=== PATIENT | female | born 2000 | race Caucasian/White ===

== ENCOUNTER 2022-03-11 10:36 | Emergency (ER) | payer BC, SELFPAY ==
[2022-03-11 10:45] VITALS: BP 114/75; PULSE 94; RESP 16; TEMP 37.2; O2SAT 100
--- NOTE | 2022-03-11 10:45 | RT.EKG_ITS ---
APPROVED REPORT Exam: Resting ECG Reason for Exam: palpitations Patient Location: E HR:83 bpm ECG Measurements Heart Rate 83 AXIS MS 144 P 62 QRSd 78 QRS 52 QT 377 T 22 QTc 438 Conclusion Sinus rhythm...normal P axis, V-rate 60- 99 Atrial premature complex...SV complex w/ short R-R interval. Sinus. Normal axis. PACs. No STEMI. I have reviewed and interpreted ECG and agree with software generated interpretation.
[2022-03-11 11:12] VITALS: RESP 13
[2022-03-11 11:14] LABS: Abs Immature Grans 0.02 10^3/uL (0.0-0.06); Absolute Basophil Count 0.04 10^3/uL (0.0-0.2); Absolute Lymphocyte Count 2.91 10^3/uL (1.2-3.4); Absolute Monocyte Count 0.63 10^3/uL (0.1-0.8); Absolute Neutrophil Count 5.23 10^3/uL (1.2-6.7); Basophils % 0.4; Eosinophils % 4.3; HCT 41.3 % (36.0-46.0); HGB 13.5 g/dL (11.2-15.7); Immature Grans % 0.2; Lymphocytes % 31.5; MCH 28.8 pg (27.0-33.0); MCHC 32.7 % (32.0-36.0); MCV 88 fL (80-95); MPV 10.6 fL (8.0-11.0); Monocytes % 6.8; Neutrophils % 56.8; Platelet Count 258 10^3/uL (130-400); RBC 4.68 10^6/uL (3.93-5.22); RDW 12.5 % (11.7-14.6); RDW-SD 40.7 fL; WBC 9.23 10^3/uL (4.4-10.8)
[2022-03-11 11:41] LABS: ALT 21 U/L (14-59); AST 17 U/L (15-37); Albumin 3.9 g/dL (3.4-5.0); Alkaline Phosphatase 73 U/L (46-116); Anion Gap 7.8 mmol/L (3-11); BUN 11 mg/dL (7-18); Bilirubin, Total 0.7 mg/dL (0.2-1.0); CO2 26.2 mmol/L (21.0-32.0); CREATININE 0.6 mg/dL (0.55-1.02); Calcium 8.8 mg/dL (8.5-10.1); Chloride 105 mmol/L (98-107); Glucose 90 mg/dL (74-106); Magnesium 1.9 mg/dL (1.8-2.5); Potassium 3.8 mmol/L (3.5-5.1); Sodium 139 mmol/L (136-145); Total Protein 7.5 g/dL (6.4-8.2); Troponin I < 50 ng/L (<or=60)
[2022-03-11 12:02] VITALS: BP 111/58; BP 111/68; BP 114/68; PULSE 63; PULSE 79; PULSE 95
--- NOTE | 2022-03-11 12:18 | ED.GENADUL_ITS ---
Discharge Plan Disposition Patient Disposition: HOME Condition: Stable Discharge Details Clinical Impression: Heart palpitations, Light-headed feeling Primary Care Provider: Corrina Ramirez ED Provider: Danay Jules Home Meds and New Rx's Prescriptions: Continued escitalopram oxalate [Lexapro] 5 mg Tablet 5 mg PO DAILY 0RF Discharge Instructions Instructions: Heart Palpitations (ED) Additional Instructions: Please follow-up with your primary care physician Return earlier should you have chest pain, shortness of breath, dizziness, weakness, or with any new or worsening complaints I do not recommend that you drive if you are feeling like you might pass out Please return earlier should you have new or worsening complaints Referrals: Corirna Ramirez [Primary Care Provider] - Discharge Data Discharge Date/Time-TO BE ENTERED AT DEPARTURE: 03/11/22 12:00 Medical Decision Making , patient's blood work does not show evidence of acute abnormality Her EKG does not show acute abnormality She is ambulatory gait, her orthostatics are negative She was set up for Holter monitor She will need to follow-up with her primary care physician She is not PERC negative for PE Return precautions discussed and patient expressed understanding I reviewed her labs from yesterday's visit in the [facility] report Medical Records Medical records reviewed: Yes I reviewed the patient's medical records. Lab Data Lab results reviewed: Yes I reviewed the patient's lab results. HPI General Date/Time Provider Initiated Documentation: 03/11/22 10:38 . HPI Narrative: This 21-year-old female presents with 3 weeks of lightheadedness and palpitations. She states she was evaluated yesterday at an urgent care and had blood work all of which was negative. She presents here secondary to shakiness this morning recurrence of symptoms. She states when she is driving she felt like she might pass out. She states her symptoms occur both sitting and standing. She denies known exacerbating or alleviating events. She denies any chance of . She was treated for urinary tract infection approximately 3 weeks ago. She had a urine checked yesterday and was told was negative. She denies prior history of similar symptoms in the past. She denies Holter monitor previously. She denies any recent flights, surgeries or long track. She has any shortness of breath or chest pain associated. She denies any recent upper respiratory symptoms. She was diagnosed with COVID in December of this year. Related Data Home Medications Medication Instructions Recorded Confirmed escitalopram oxalate 5 mg tablet 5 mg PO DAILY 03/11/22 03/11/22 (Lexapro) Allergies Allergy/AdvReac Type Severity Reaction Status Date / Time latex Allergy Skin Rash Unverified 03/11/22 10:49 General Stated Complaint: [employer]Medical BABAK: 3 Review of Systems All systems reviewed & are unremarkable except as noted in HPI and below PFSH All Active Problems (Updated 03/11/22 @ 12:00 by YAW Rao) Heart palpitations (Acute) Light-headed feeling (Acute) Palpitations (Acute) Social History Smoking/Tobacco Use Status: Never Smoking risk assessment performed?: Yes Alcohol Intake: never Drug use: Never Substance use type: does not use Do you feel safe at home: Yes Do you feel safe in your relationship?: Yes Exam Const General: cooperative, comfortable and no acute distress Eyes Sclera: sclerae normal Resp Effort & Inspection: normal respiratory effort Auscultation: clear to auscultation bilaterally Cardio Rate: regular rate Rhythm: regular rhythm GI Inspection: normal to inspection Palpation: nontender Skin General skin exam: no rashes or lesions noted Neuro General: patient alert and patient oriented x3 Extrem Other: distal pulses intact Course Vital Signs Vital signs: Vital Signs Temperature 37.2 C 03/11/22 10:45 Pulse 94 H 03/11/22 10:45 Respiratory Rate 16 03/11/22 10:45 Blood Pressure 114/75 03/11/22 10:45 Pulse Oximetry 100 03/11/22 10:45 Temperature 37.2 C 03/11/22 10:45 Temperature Source Temporal Artery Scan 03/11/22 10:45 Pulse 63 03/11/22 12:02 Respiratory Rate 13 03/11/22 11:12 Respiratory Effort Non-Labored 03/11/22 11:12 Respiratory Depth Normal 03/11/22 11:12 Respiratory Pattern Normal 03/11/22 11:12 Blood Pressure 111/68 03/11/22 12:02 Blood Pressure Position Sitting 03/11/22 10:45 Pulse Oximetry 100 03/11/22 10:45 Oxygen Delivery Method Room Air 03/11/22 10:45 Oxygen Flow Rate 0 03/11/22 10:45 Lab/Test Results Lab/Test Results: Laboratory Tests Range/Units 03/11/22 03/11/2203/11/22 11:09 11:09 11:09 WBC (4.4-10.8) 10^3/uL 9.23 RBC (3.93-5.22) 10^6/uL 4.68 Hgb (11.2-15.7) g/dL 13.5 Hct (36.0-46.0) % 41.3 MCV (80-95) fL 88 MCH (27.0-33.0) pg 28.8 MCHC (32.0-36.0) % 32.7 RDW (11.7-14.6) % 12.5 Plt Count (130-400) 10^3/uL 258 MPV (8.0-11.0) fL 10.6 Immature Gran % 0.2 Neutrophils % 56.8 Lymphocytes % 31.5 Monocytes % 6.8 Eosinophils % 4.3 Basophils % 0.4 Nucleated RBC % (0.0-0.3) % 0.0 Absolute Neutrophils (1.2-6.7) 10^3/uL 5.23 Absolute Lymphocytes (1.2-3.4) 10^3/uL 2.91 Absolute Monocytes (0.1-0.8) 10^3/uL 0.63 Absolute Eosinophils (0.0-0.7) 10^3/uL 0.40 Absolute Basophils (0.0-0.2) 10^3/uL 0.04 Sodium (136-145) mmol/L 139 Potassium (3.5-5.1) mmol/L 3.8 Chloride (98-107) mmol/L 105 Carbon Dioxide (21.0-32.0) mmol/L 26.2 Anion Gap (3-11) mmol/L 7.8 BUN (7-18) mg/dL 11 Creatinine (0.55-1.02) mg/dL 0.6 Estimated GFR/1.73 m2 (mL/min/1.73m2) >= 60.00 Glucose (74-106) mg/dL 90 Calcium (8.5-10.1) mg/dL 8.8 Magnesium (1.8-2.5) mg/dL 1.9 Cancelled Total Bilirubin (0.2-1.0) mg/dL 0.7 AST (15-37) U/L 17 ALT (14-59) U/L 21 Alkaline Phosphatase (46-116) U/L 73 Troponin I (<or=60) ng/L < 50 Total Protein (6.4-8.2) g/dL 7.5 Albumin (3.4-5.0) g/dL 3.9 TSH (0.52-4.13) uIU/mL 1.10 Cancelled POC- Test(urine) Negative
== END 2022-03-11 12:00 | disposition home or self-care (01) ==
PROVIDERS: Physician Assistant; Emergency Provider Physician Assistant; PCP Physician Assistant
DX: R00.2 Palpitations (principal); R42 Dizziness and giddiness; Z86.16 Personal history of COVID-19
CPT/HCPCS: 36415; 80053; 81025; 93005; 99283; 83735; 84443; 84484; 85025; 93010

== ENCOUNTER 2022-03-11 12:15 | Outpatient (RCR) | payer BC, SELFPAY ==
--- NOTE | 2022-03-11 10:00 | HOLTER_ITS ---
APPROVED REPORT Conclusion This is a 48-hour Holter monitor ordered for palpitations and lightheadedness Predominant rhythm is sinus. Average heart rate of 74. Minimum was 49, maximum 135 There were very rare isolated atrial and ventricular ectopic beats There was no atrial fibrillation, no high-grade AV block, no pauses greater than 3 seconds Multiple patient symptoms were reported none of which correlated to any dysrhythmia
== END 2022-03-22 23:59 | disposition home or self-care (01) ==
LOC: RT 12:15
PROVIDERS: PCP Physician Assistant; Visit Provider Physician Assistant
DX: R00.2 Palpitations (principal); R42 Dizziness and giddiness
CPT/HCPCS: 93225; 93226

== ENCOUNTER 2024-12-08 01:04 | Outpatient (CLI) | payer OTHER, SELFPAY ==
[2024-12-08 14:53] LABS: Panorama Kit Sent via Fed Ex
[2024-12-08 15:02] LABS: Abs Immature Grans 0.07 10^3/uL (0.0-0.06); Absolute Basophil Count 0.03 10^3/uL (0.0-0.2); Absolute Eosinophil Count 0.28 10^3/uL (0.0-0.7); Absolute Lymphocyte Count 2.55 10^3/uL (1.2-3.4); Basophils % 0.3 %; Eosinophils % 2.6 %; HCT 37.9 % (36.0-46.0); HGB 12.9 g/dL (11.2-15.7); Immature Grans % 0.6 %; Lymphocytes % 23.3 %; MCH 29.7 pg (27.0-33.0); MCV 87 fL (80-95); MPV 10.3 fL (8.0-11.0); Monocytes % 6.4 %; Neutrophils % 66.8 %; Platelet Count 249 10^3/uL (130-400); RBC 4.35 10^6/uL (3.93-5.22); RDW 12.2 % (11.7-14.6); RDW-SD 38.8 fL; WBC 10.93 10^3/uL (4.4-10.8)
[2024-12-08 23:32] LABS: Hepatitis B Surface Ag Negative (Negative)
[2024-12-09 00:02] LABS: Hepatitis C Ab w Rflx HCV PCR Negative (Negative)
[2024-12-09 08:56] LABS: HIV-1/2 Ag & Ab Screen Negative (Negative)
[2024-12-09 10:53] LABS: Varicella IgG Antibody Positive (See Note)
[2024-12-09 12:30] LABS: Rubella IgG Ab (UVM) Positive (See Note)
[2024-12-11 14:18] LABS: Syphilis IgG w/Reflex Nonreactive (Nonreactive)
[2024-12-14 23:28] LABS: Specimen WB Whole Blood
[2024-12-28 11:04] LABS: Result Summary NEGATIVE; Specimen WB Whole Blood
== END 2024-12-08 01:05 | disposition home or self-care (01) ==
LOC: LBO 01:04
PROVIDERS: PCP Physician Assistant; Visit Provider Advanced Practice Midwife
DX: Z34.91 Encounter for supervision of normal pregnancy, unspecified, first trimester (principal)
CPT/HCPCS: 36415; 81220; 81222; 81329; 86787; 86803; 86850; 86900; 86901; 87340; 87389; 85025; 86762; 86780

== ENCOUNTER 2024-12-08 14:22 | Outpatient (REF) | payer OTHER, SELFPAY ==
[2024-12-12 11:17] LABS: Chlamydia Result Negative (Negative); GC Result Negative (Negative)
== END 2024-12-08 14:23 | disposition home or self-care (01) ==
LOC: LBN 14:22
PROVIDERS: PCP Physician Assistant; Visit Provider Advanced Practice Midwife
DX: Z34.91 Encounter for supervision of normal pregnancy, unspecified, first trimester (principal)
CPT/HCPCS: 87491; 87591; 87086

== ENCOUNTER 2024-12-13 11:08 | Outpatient (REF) | payer OTHER, SELFPAY | END 2024-12-13 11:09 | disposition home or self-care (01) | LOC: LBN 11:08 | PROVIDERS: PCP Physician Assistant; Visit Provider Advanced Practice Midwife | DX: O26.891 Other specified pregnancy related conditions, first trimester (principal); R30.0 Dysuria; R10.2 Pelvic and perineal pain; Z3A.11 11 weeks gestation of pregnancy | CPT/HCPCS: 87086; 87480; 87510; 87660 ==

== ENCOUNTER 2025-01-12 01:14 | Outpatient (CLI) | payer OTHER, SELFPAY ==
[2025-01-16 16:46] LABS: AFP 19.6 ng/mL; Cigarette smoking status non-Smoker; GA used in risk estimate Scan estimate; IVF Pregnancy No; Initial or repeat testing Initial testing; Insulin dependent diabetes No; Maternal Weight 207 lbs; Number of Fetuses 1; Prev Pregnancy w/NTD No; RECOMMENDED FOLLOW UP None.; Results Summary Normal risk
== END 2025-01-12 01:15 | disposition home or self-care (01) ==
PROVIDERS: PCP Physician Assistant; Visit Provider Advanced Practice Midwife
DX: Z34.92 Encounter for supervision of normal pregnancy, unspecified, second trimester (principal)
CPT/HCPCS: 36415; 82105

== ENCOUNTER 2025-04-07 02:00 | Outpatient (CLI) | payer OTHER, SELFPAY ==
[2025-04-07 13:35] LABS: HCT 36.3 % (36.0-46.0); HGB 12.3 g/dL (11.2-15.7); MCH 29.1 pg (27.0-33.0); MCHC 33.9 % (32.0-36.0); MCV 86 fL (80-95); MPV 10.7 fL (8.0-11.0); Platelet Count 245 10^3/uL (130-400); RBC 4.22 10^6/uL (3.93-5.22); RDW 12.8 % (11.7-14.6); RDW-SD 39.6 fL; WBC 12.89 10^3/uL (4.4-10.8)
[2025-04-07 14:03] LABS: Glucose,1 Hr (Glucola) 95 mg/dL (80-140)
== END 2025-04-07 02:01 | disposition home or self-care (01) ==
LOC: LBO 02:00
PROVIDERS: Advanced Practice Midwife; PCP Physician Assistant; Visit Provider Advanced Practice Midwife
DX: Z34.92 Encounter for supervision of normal pregnancy, unspecified, second trimester (principal)
CPT/HCPCS: 36415; 82950; 85027

== ENCOUNTER 2025-06-02 15:15 | Outpatient (REF) | payer OTHER, SELFPAY | END 2025-06-02 15:16 | disposition home or self-care (01) | LOC: LBN 15:15 | PROVIDERS: PCP Physician Assistant; Visit Provider Advanced Practice Midwife | DX: Z34.93 Encounter for supervision of normal pregnancy, unspecified, third trimester (principal); Z3A.36 36 weeks gestation of pregnancy | CPT/HCPCS: 87081 ==

== ENCOUNTER 2025-06-07 02:45 | Outpatient (CLI) | payer OTHER, SELFPAY ==
[2025-06-07 16:25] LABS: HCT 35.6 % (36.0-46.0); HGB 11.9 g/dL (11.2-15.7); MCH 28.4 pg (27.0-33.0); MCHC 33.4 % (32.0-36.0); MCV 85 fL (80-95); MPV 11.2 fL (8.0-11.0); Platelet Count 218 10^3/uL (130-400); RBC 4.19 10^6/uL (3.93-5.22); RDW 12.8 % (11.7-14.6); RDW-SD 39.0 fL; WBC 12.07 10^3/uL (4.4-10.8)
== END 2025-06-07 02:46 | disposition home or self-care (01) ==
LOC: LBO 02:45
PROVIDERS: Advanced Practice Midwife; PCP Physician Assistant; Visit Provider Advanced Practice Midwife
DX: Z34.93 Encounter for supervision of normal pregnancy, unspecified, third trimester (principal)
CPT/HCPCS: 36415; 85027

== ENCOUNTER 2025-06-30 13:31 | Outpatient (CLI) | payer OTHER, SELFPAY ==
[2025-06-30] VITALS (9 sets, daily range): BP systolic 129–144; BP diastolic 74–86; PULSE 78–93; TEMP 98.2–208.8
[2025-06-30 14:28] LABS: HCT 35.9 % (36.0-46.0); HGB 12.1 g/dL (11.2-15.7); MCH 28.5 pg (27.0-33.0); MCHC 33.7 % (32.0-36.0); MCV 85 fL (80-95); MPV 11.5 fL (8.0-11.0); Platelet Count 224 10^3/uL (130-400); RBC 4.25 10^6/uL (3.93-5.22); RDW 13.5 % (11.7-14.6); RDW-SD 41.1 fL; WBC 11.64 10^3/uL (4.4-10.8)
[2025-06-30 14:57] LABS: ALT 22 U/L (14-59); AST 17 U/L (15-37); Albumin 2.6 g/dL (3.4-5.0); Alkaline Phosphatase 238 U/L (46-116); Anion Gap 8.6 mmol/L (3-11); BUN 9 mg/dL (7-18); Bilirubin, Total 0.4 mg/dL (0.2-1.0); CO2 24.4 mmol/L (21.0-32.0); Calcium 8.6 mg/dL (8.5-10.1); Chloride 104 mmol/L (98-107); Estimated GFR 124.55 (mL/min/1.73m2); Glucose 108 mg/dL (74-106); Potassium 3.6 mmol/L (3.5-5.1); Sodium 137 mmol/L (136-145); Total Protein 6.7 g/dL (6.4-8.2)
[2025-06-30 15:14] LABS: PROTEIN 10.1 mg/dL; Prot/Crea Ur Ratio 0.18
--- NOTE | 2025-06-30 15:14 | W.OBNST ---
Date of service: 06/30/25 Time of Service: 15:14 NST Evaluation Reason for NST Reasons for Nonstress Test: GESTATIONAL HYPERTENSION Gestational Age Gestational Age in Weeks and Days: 40 Weeks and 1Days Test and Monitor Explained Test/Monitor Explained: Test Explained, Monitor Explained and Patient Verbalized Understanding Vital Signs Blood Pressure: 135/82 Pulse: 93 Temperature: 208.8 F NST Information Date on Monitor: 06/30/25 Time on Monitor: 13:43 Date off Monitor: 06/30/25 Time off Monitor: 14:45 Total Time on Monitor: 62 NST Interventions: PO Hydration Contraction Frequency: rare NST Evaluation Patient States Movement: Present FHR Baseline: 140 Variability: Moderate 6-25 bpm Accelerations: 15x15 Decelerations: None NST Results: Reactive Note Ultrasound Done: N/A. NST Note Note: Cvx 1-2/80% mid-post, soft, vtx -3, intact membranes Membranes swept at pt request Plan for IOL, 1700 on 07/03 Labs drawn and nml, urine pr/cr pending at this writing NST Reviewed and Verified by: Mariah Carey
== END 2025-06-30 15:15 ==
LOC: BCD 13:36 → OBS 13:37
PROVIDERS: PCP Physician Assistant; Visit Provider Advanced Practice Midwife
DX: O13.3 Gestational [pregnancy-induced] hypertension without significant proteinuria, third trimester (principal); Z3A.40 40 weeks gestation of pregnancy
CPT/HCPCS: 80053; 85027; 59025; 82565; 84156

== ENCOUNTER 2025-07-03 16:32 | Inpatient (IN) | payer OTHER, SELFPAY ==
[2025-07-03 16:51] VITALS: BP 124/76; PULSE 85; RESP 18; TEMP 36.7
[2025-07-03 16:52] VITALS: BP 124/76; PULSE 85; RESP 18; TEMP 36.7; O2SAT 98
[2025-07-03 16:53] VITALS: PULSE 158; O2SAT 82
--- NOTE | 2025-07-03 17:04 | HPE_ITS ---
Date of service: 07/03/25 Time of Service: 17:04 Assessment and Plan Assessment and plan (1) Encounter for induction of labor: Status: Acute Assessment and plan: Admit to Center and routine admission labs. Comfort measures. Reviewed cervical ripening methods. Will plan to proceed with misoprostol for cervical ripening and anticipate . (2) Gestational hypertension: Status: Acute Assessment and plan: BP 124/76 on admission. Labs were WNL 3 days ago. Will continue to assess and draw labs if appropriate. OB-HPI Labor/Delivery History of Present Illness Reason for Visit: Induction of labor Chief Complaint: Scheduled Induction of Labor Indication for Induction: Gestational Hypertension and Other (patient preference). CARRIE Calculator Estimated Delivery Date Method Current WG Current Estimate 06/29/25 Ultrasound #1 40w 4d Other Estimates 06/24/25 LMP (Certain) 41w 2d Comments: Dayana has had elevated BP in the past week. On 06/30 BP was 144/86 and 129/89. Other than that day, BP has been 130s/80s. She has no edema or headache or epigastric pain. EDC by certain LMP is 41 +2. History of Present Expected Delivery Route/Plan - CNM FOB/boyfriend - Jones Harris (first child) [place] at delivery, circ if a boy Took CBE class, desires tub/shower, epidural, if necessary. Wants to be talked through contrx. GBS negative Specific Issues/Plan 1. cfDNA- low risk, CF- negative, SMA negative; AFP=nml risk for NTD 2. Followed by [facility] q6mo for high-risk for breast CA (mother) 3. Desires LC consult prior to delivery after 36 wks (flat and pierced nipples) 4. Plan for first ever PAP 5. Chronic constipation - benefiber and colace prn 6. Pt has needlephobia, would like to use nitrous for venapuncture 7. Anemia - Hgb 10.5 by fingerstick, repeat serum CBC, hgb=11.9 Assessment: History Reviewed & Current Informed Consent Informed Consent: Induction of Labor PFSH All Active Problems (Updated 07/03/25 @ 17:04 by Julisa Mcknight CNM) Gestational hypertension (Acute) Encounter for induction of labor (Acute) Left hip pain (Acute) Anemia affecting (Acute) Flat nipple (Acute) History of frequent urinary tract infections (Acute) (Acute) Palpitations (Acute) Medical History (Updated 07/03/25 @ 17:04 by Julisa Mcknight CNM) Pelvic pain Dysuria during Chronic constipation History of Lyme disease Family history of breast cancer in mother Social History Smoking/Tobacco Use Status: Never Smoking risk assessment performed?: Yes Alcohol Intake: never Drug use: Never Substance use type: does not use Details: n/a Housing: house Do you feel safe at home: Yes Do you feel safe in your relationship?: Yes History History 1 Para 0 Hx # Term Pregnancies 0 Multiple births 0 Hx # Pregnancies 0 Ectopic pregnancies 0 AB induced 0 Hx Number of Living Children 0 AB spontaneous 0 Meds Allergies and Home Medications Allergies Allergy/AdvReac Type Severity Reaction Status Date / Time amoxicillin Allergy Intermediate Skin Rash Verified 06/30/25 13:10 Sulfa (Sulfonamide Allergy Mild Skin Rash Verified 06/30/25 13:10 Antibiotics) latex Allergy Skin Rash Verified 06/30/25 13:10 Home Medications ?Medication ?Instructions ?Recorded ?Confirmed ?Type vits no.126-ferrous fum tab PO DAILY 12/08/24 06/30/25 History 28 mg iron-folic acid 800 mcg tablet (Classic ) erythromycin with ethanol 2 % 1 applic topical BID #60 mL 04/07/25 06/30/25 Rx topical solution Exam Physical Exam Vital signs: Temp Pulse Resp BP Pulse Ox 98.1 F 158 H 18 124/76 82 L 07/03/25 16:51 07/03/25 16:53 07/03/25 16:51 07/03/25 16:51 07/03/25 16:53 Vital Signs Reviewed: Yes Constitutional Constitutional: no acute distress Detailed Labor and Delivery Exam Dilation: 1 Effacement (%): 65 station: -2 Cervix position: posterior Consistency: soft Gallagher Score: Cervical Points Exam 0 1 2 3 Dilation Closed 1-2cm 3-4 cm 5-6cm Effacement 0-30% 40-50% 60-70% 80% Consistency Firm Medium Soft Station -3 -2 -1,0 +1,+2 Position Posterior Mid Anterior Amniotic Membrane Status: Intact Monitor Mode: External Contraction Frequency(min): occasional Contraction Duration(sec): varying Contraction Intensity: Mild/Moderate Fetus A Heart Rate Baseline: 135 Monitor Accelerations: 15 X 15 Monitor Decelerations: None Variability: Moderate (6-25 BPM) Presentation: Cephalic Categories: Category I Est. Weight: 8 lb HEENT Exam HEENT Exam: Normal Respiratory Exam Respiratory Exam: Normal Cardiovascular Exam Cardiovascular Exam: Normal Abdominal Exam Abdominal Exam: Normal Rectal Exam Rectal Exam: Normal Exam Exam: Normal Extremities Exam Extremities Exam: Normal Skin Exam Skin Exam: Normal Psychiatric Exam Psychiatric Exam: Normal Results Results Group Beta Strep: Negative Blood Type: O+ Rubella Status: Immune Varicella Immunity: Immune Risk Assessment Risk for Shoulder Dystocia Historical/Initial OB: NEGATIVE FOR: Pelvic Abnormality, Pre- BMI>30, Previous Shoulder Dystocia or Previous Macrosomia 36 Weeks: NEGATIVE FOR: Current Gestational DM, EFW>4500gms or Maternal Weight Gain>40lbs 40 Weeks: POSTIVE FOR: Maternal Weight Gain >40lb and Post Dates; NEGATIVE FOR: EFW> 4500 gms Increased Risk?: No Risk for Pre-Eclampsia Daily Dose ASA Indicated: No Date Initiated/Initials: not indicated. JK Yes, if one or more: NEGATIVE FOR: Hx Pre-E/Gest HTN, Chronic HTN, Multiple Gestation, Pre-gestational DM, Renal Disease, Systemic Lupus or APA Syndrome Yes, if 2 or more: NEGATIVE FOR: Nulliparity, Age>= 35 yrs, >10yr btwn pregnancies, BMI>30, ethinicty, Mother/Sister w/ Pre-E or Previous IUGR Risk for Post- Hemorrhage Initial: NEGATIVE FOR: Multiple Gestation, Previous PPH, Known Clotting Deficiency, Grand Multiparity or Anticoagulation 36 Weeks: NEGATIVE FOR: Anemia, hgb<10, Low platelets(thrombocytopenia), Gestational HTN or Pre-E, Polyhydraminios or EFW>4500gms 40 Weeks: NEGATIVE FOR: Anemia, hgb<10, Low platelets (thrombocytopenia), Gestation HTN or Pre-E, Polyhydraminios or EFW>4500gms At Risk?: No Risks Reviewed Risks Reviewed Upon Admission: Yes
[2025-07-03 17:14] LABS: HCT 36.5 % (36.0-46.0); HGB 12.5 g/dL (11.2-15.7); MCH 28.6 pg (27.0-33.0); MCHC 34.2 % (32.0-36.0); MCV 84 fL (80-95); MPV 11.2 fL (8.0-11.0); Platelet Count 239 10^3/uL (130-400); RBC 4.37 10^6/uL (3.93-5.22); RDW 13.3 % (11.7-14.6); RDW-SD 40.0 fL; WBC 11.47 10^3/uL (4.4-10.8)
[2025-07-03] MEDS: miSOPROStol 25 MCG TAB PO ×2 (17:35→21:55)
[2025-07-03 21:36] VITALS: BP 121/76; PULSE 71
[2025-07-03] MEDS: Zolpidem 5 MG TAB 10 MG PO (21:57)
[2025-07-04] VITALS (212 sets, daily range): BP systolic 100–137; BP diastolic 55–80; PULSE 0–165; RESP 16–18; TEMP 36.4–37.3; O2SAT 85–100; BMI 33.0
--- NOTE | 2025-07-04 01:25 | PGE_ITS ---
Date of service: 07/04/25 Time of Service: 01:25 Informed Consent Informed Consent: Induction of Labor Pelvic Exam Dilation: 2 Effacement (%): 90 station: -1 Cervix Position: posterior Consistency: soft Vaginal Exam Presentation: Cephalic Pooling: Positive Nitrazine: Positive Contractions Monitor Mode: External Contraction Frequency(min): every 2-3 Contraction Duration(sec): 60 Intensity: Moderate/Strong Fetus A Monitor: External (US) Heart Rate Baseline: 130 Presentation: Cephalic Variability: Moderate (6-25 BPM) Categories: Category I FHR Rhythm: Regular Accelerations: 15 X 15 Decelerations: None Amniotic Membrane Status: Ruptured Assessment and Plan Assessment and plan (1) Encounter for induction of labor: Status: Acute Assessment and plan: 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 Prepare for epidural. Comfort measures. Anticipate . Objective Abnormal lab results 07/03/25 Range/Units 17:02 WBC 11.47 H (4.4-10.8) 10^3/uL MPV 11.2 H (8.0-11.0) fL Temp Pulse Resp BP Pulse Ox 98.4 F 71 18 121/76 82 L 07/04/25 00:15 07/03/25 21:36 07/03/25 16:52 07/03/25 21:36 07/03/25 16:53 Laboratory Results WBC 11.47 10^3/uL (4.4-10.8) H 07/03/25 17:02 RBC 4.37 10^6/uL (3.93-5.22) 07/03/25 17:02 Hgb 12.5 g/dL (11.2-15.7) 07/03/25 17:02 Hct 36.5 % (36.0-46.0) 07/03/25 17:02 MCV 84 fL (80-95) 07/03/25 17:02 MCH 28.6 pg (27.0-33.0) 07/03/25 17:02 MCHC 34.2 % (32.0-36.0) 07/03/25 17:02 RDW 13.3 % (11.7-14.6) 07/03/25 17:02 Plt Count 239 10^3/uL (130-400) 07/03/25 17:02 MPV 11.2 fL (8.0-11.0) H 07/03/25 17:02 ABO/Rh O Positive 07/03/25 17:02 Antibody Screen NEGATIVE 07/03/25 17:02 Subjective Patient Reports: New Complaints Interval history since last seen: Dayana took ambien to try to rest. She received second dose of misoprostol and contractions became strong and regular and focused in her back. She experienced spontaneous rupture of membranes for light meconium stained fluid. Her contractions became more intense and she tried nitrous oxide for pain relief but did not like how it made her feel. She has been using the ball and hands and knees position for relief of back pain. She is assisted by her partner and her mother. Most recent B.P 121/76 Results Hemoglobin/Hematocrit: Hgb 12.5 g/dL (11.2-15.7) 07/03/25 17:02 Hct 36.5 % (36.0-46.0) 07/03/25 17:02 Abnormal Lab Findings: Abnormal Labs 07/03/25 17:02 WBC 11.47 H MPV 11.2 H
[2025-07-04] MEDS: Lactated Ringers 250 ML 500 ML IV (01:39)
[2025-07-04] MEDS: FentaNYL/ROPIvacaine 2 mcg/ml and 0.1% 200 ML CADD Cassette EP (03:01)
--- NOTE | 2025-07-04 03:15 | W.ANESPRE ---
General Info Date of Service Date Performed: 07/04/25 Height: 6 ft Weight: 110.677 kg Body Mass Index (BMI): 33.0 Meds Allergies and Home Medications Allergies Allergy/AdvReac Type Severity Reaction Status Date / Time amoxicillin Allergy Intermediate Skin Rash Verified 06/30/25 13:10 Sulfa (Sulfonamide Allergy Mild Skin Rash Verified 06/30/25 13:10 Antibiotics) latex Allergy Skin Rash Verified 06/30/25 13:10 Home Medication ?Medication ?Instructions ?Recorded vits no.126-ferrous fum 1 tab PO DAILY 12/08/24 28 mg iron-folic acid 800 mcg tablet (Classic ) erythromycin with ethanol 2 % 1 applic topical BID #60 mL 04/07/25 topical solution docusate sodium 100 mg capsule 100 mg PO ONCE 07/03/25 Current Visit Medications: Current Medications Generic Name Dose Route Start Last Admin Trade Name Freq PRN Reason Stop Dose Admin Fentanyl/Ropivacaine 200 ml 07/04/25 01:45 Fentanyl/Ropivacaine 2 Mcg/Ml And 0.1% 200 Ml Cadd Cassette EP DIRECTED MARTHA Fentanyl/Ropivacaine 200 ml 07/04/25 01:45 Fentanyl/Ropivacaine 2 Mcg/Ml And 0.1% 200 Ml Cadd Cassette EP DIRECTED MARTHA Ringer's Solution 1,000 mls @ 200 mls/hr 07/03/25 16:45 IV [facility]ION [facility] IV Miscellaneous Supplies 1 each 07/03/25 16:45 Iv Access IV DIRECTED MARTHA Misoprostol 25 mcg 07/03/25 17:00 07/03/25 21:55 Misoprostol 25 Mcg Tab PO 25 mcg Q4H MARTHA Administration Sodium Chloride 0 ml 07/03/25 16:32 Normal Saline Flush 10 Ml Syr IVP PRN PRN Sodium Chloride 0 ml 07/03/25 20:00 Normal Saline Flush 10 Ml Syr IVP BID MARTHA Sodium Chloride 0 ml 07/03/25 16:32 Normal Saline 10 Ml Vial IJ DIRECTED PRN Terbutaline Sulfate 0.25 mg 07/03/25 16:32 Terbutaline 1 Mg/Ml Vial SC PRN PRN Zolpidem Tartrate 10 mg 07/03/25 21:00 07/03/25 21:57 Zolpidem 5 Mg Tab PO 07/04/25 06:00 10 mg 2100 MARTHA Administration PFSH Active Problems Active Problems: Problem Status Onset Code Gestational hypertension Acute O13.9 Encounter for induction of labor Acute Z34.90 Left hip pain Acute M25.552 Anemia affecting Acute O99.019 Flat nipple Acute N64.59 History of frequent urinary tract infections Acute Z87.440 Acute Z34.90 Palpitations Acute R00.2 Medical History Medical History (Updated 07/03/25 @ 17:04 by Julisa Mcknight CNM) Pelvic pain Dysuria during Chronic constipation History of Lyme disease Family history of breast cancer in mother Tobacco Smoking/Tobacco Use Status: Never Passive smoking exposure: No Alcohol Alcohol Intake: never Substance Use Substance use: Never Substance use type: does not use Details: n/a Prental History History 1 Para 0 Hx # Term Pregnancies 0 Multiple births 0 Hx # Pregnancies 0 Ectopic pregnancies 0 AB induced 0 Hx Number of Living Children 0 AB spontaneous 0 Vital Signs and Lab Results Vital Signs Most Recent Vital Signs in EMR: Most Recent Vital Signs Temp Pulse Resp BP Pulse Ox 36.7 C 113 H 18 118/60 99 07/04/25 01:50 07/04/25 03:13 07/03/25 16:52 07/04/25 03:13 07/04/25 03:10 Lab Results 07/03/25 17:02 Blood Type / Crossmatch: Antibody Screen NEGATIVE 07/03/25 Complete Blood Count: WBC, (4.4-10.8) 11.47 10^3/uL H 07/03/25, 17:02 RBC, (3.93-5.22) 4.37 10^6/uL 07/03/25, 17:02 Hgb, (11.2-15.7) 12.5 g/dL 07/03/25, 17:02 Hct, (36.0-46.0) 36.5 % 07/03/25, 17:02 Plt Count, (130-400) 239 10^3/uL 07/03/25, 17:02 Complete Metabolic Panel: Sodium, (136-145) 137 mmol/L 06/30/25, 14:20 Potassium, (3.5-5.1) 3.6 mmol/L 06/30/25, 14:20 Chloride, (98-107) 104 mmol/L 06/30/25, 14:20 Carbon Dioxide, (21.0-32.0) 24.4 mmol/L 06/30/25, 14:20 BUN, (7-18) 9 mg/dL 06/30/25, 14:20 Creatinine, (0.55-1.02) 0.7 mg/dL 06/30/25, 14:20 Est GFR (CKD-EPI 2020), (mL/min/1.73m2) 124.55 06/30/25, 14:20 Calcium, (8.5-10.1) 8.6 mg/dL 06/30/25, 14:20 Albumin, (3.4-5.0) 2.6 g/dL L 06/30/25, 14:20 Glucose, (74-106) 108 mg/dL H 06/30/25, 14:20 Liver Function Panel: ALT, (14-59) 22 U/L 06/30/25, 14:20 AST, (15-37) 17 U/L 06/30/25, 14:20 Anesthesia Assessment and Plan Anesthesia History Personal History: No History of Anesthesia Complications Family History: No Family History of Anesthesia Complications Exercise Tolerance Exercise Tolerance: Metabolic Equivalents>4 Pertinent Negatives Pertinent Negatives: No Symptoms of GERD Cardiac & Pulmonary Exam Cardiac Exam: Normal S1/S2 Heart Sounds Pulmonary Exam: Clear Bilateral Breath Sounds Implantable Cardiac Device Does patient have a Pacemaker or an ICD?: No Airway Exam Known Difficult Airway: No Mallampati Class: 2 Mouth Opening: Normal (> 3cm) Thyromental Distance: Greater than 3 cm Neck Range of Motion: Full ROM Neck Circumference: Normal Teeth Condition: Normal Dentition ASA Classification ASA Score: ASA 2 Emergency Case?: No NPO Status NPO Status: NPO Clear Liquids>2 hours Status Status: Confirmed (Full-Term) Anesthesia Plan Resuscitation Status: Full Code Anesthesia Technique: Labor Epidural Airway Planned: Natural Airway Monitors Used: Standard Monitors
--- NOTE | 2025-07-04 03:16 | ANES.NEUR_ITS ---
Epidural/Spinal Catheter Date Performed: 07/04/25 Procedure Start: 02:14 Procedure Stop: 03:01 Requesting Provider: Julisa Mcknight Procedure Location: Obstetrics Reason Performed: Labor Epidural Standard Monitors Applied: ECG, Blood Pressure, SpO2 and See EMR for corresponding vital signs Patient Position: Sitting Sedation Given (Indicate Dose Given): No Sedation given Patient Mental Status: Awake Sterility: Hand Hygiene, Surgical Cap, Surgical Mask, Sterile Gloves, Sterile Drape/Sheet, Eye Protection and Chlorhexidine Procedure Location: L3-L4 Interspace Epidural Needle: Tuohy 18 Gauge Needle Length: 3.5 Inch Needle Approach: Midline Epidural Procedure: Skin Prepped, Sterile Drape Placed, 1% Lidocaine to skin and subcutaneous tissue with 25G needle, Tuohy Needle placed, KIARA to Saline Used, Epidural Catheter Placed, Negative Heme, Negative CSF Flow and Tuohy Needle Removed Catheter Placed?: Catheter Placed Test Dose (Indicate Dose Given): 3ml 1.5% Lid ocaine with 1:200K Epinephrine Given Loss of Resistance Depth (cm): 6 Catheter depth at skin (cm): 12 Dressing: Sorbaview Dressing Placed, Mastisol Used and Dressing reinforced with Tape Epidural Provider Bolus (Indicate Dose Given): Total bolus dose given in 3-5 ml divided doses and Total Ropivacaine 0.1% with Fentanyl 2mcg/ml Given from pump. (ml) Dose:: 9cc Additives (Indicate Dose Given ): None Infusion Medication: Medication Infusion Began Medication Infusion: Ropivacaine 0.1% with Fentanyl 2mcg/ml Maintenance Infusion Rate (ml/hour): 12 PCEA Bolus Dose (ml): 5 Block Level: T8 Paresthesia: None Ultrasound: Used to yvonne site Number of Attempts (See previous attempts in note section): 2 Procedure Tolerated: No Complications and Patient tolerated well Procedure Outcome: Successful Performed By: Landon Martinez
--- NOTE | 2025-07-04 07:03 | W.PM.OBNL1 ---
Date of service: 07/04/25 Time of Service: 06:30 Informed Consent Informed Consent: Induction of Labor Pelvic Exam Dilation: 10 station: +1 Vaginal Exam Presentation: Cephalic Contractions Monitor Mode: External Contraction Frequency(min): every 3 min Contraction Duration(sec): 60 Intensity: Strong Fetus A Monitor: External (US) Heart Rate Baseline: 125 Presentation: Cephalic Variability: Moderate (6-25 BPM) Categories: Category II FHR Rhythm: Regular Accelerations: 15 X 15 Decelerations: Variable Recurrence: Recurrent Amniotic Membrane Status: Ruptured Rupture Method: Spontaneous Amniotic Fluid: Meconium Assessment and Plan Assessment and plan (1) Encounter for induction of labor: Status: Acute Assessment and plan: 300 cc bolus of LR was provided with improvement in heart rate pattern. She was turned to left side and heart rate was assessed. At 0610, she was examined and found to be fully dilated. She was assisted to begin pushing. Dr. Mcgovern , plater production reproductive surgeon was notified of meconium fluid and requested to attend the . Dr Paris was also notified of patient's status. Anticipate . Objective Abnormal lab results 07/03/25 Range/Units 17:02 WBC 11.47 H (4.4-10.8) 10^3/uL MPV 11.2 H (8.0-11.0) fL Temp Pulse Resp BP Pulse Ox 98.4 F 84 17 124/73 98 07/04/25 05:42 07/04/25 05:56 07/04/25 05:00 07/04/25 05:56 07/04/25 04:59 Laboratory Results WBC 11.47 10^3/uL (4.4-10.8) H 07/03/25 17:02 RBC 4.37 10^6/uL (3.93-5.22) 07/03/25 17:02 Hgb 12.5 g/dL (11.2-15.7) 07/03/25 17:02 Hct 36.5 % (36.0-46.0) 07/03/25 17:02 MCV 84 fL (80-95) 07/03/25 17:02 MCH 28.6 pg (27.0-33.0) 07/03/25 17:02 MCHC 34.2 % (32.0-36.0) 07/03/25 17:02 RDW 13.3 % (11.7-14.6) 07/03/25 17:02 Plt Count 239 10^3/uL (130-400) 07/03/25 17:02 MPV 11.2 fL (8.0-11.0) H 07/03/25 17:02 ABO/Rh O Positive 07/03/25 17:02 Antibody Screen NEGATIVE 07/03/25 17:02 Subjective Patient Reports: New Complaints Interval history since last seen: Dayana rested but did not sleep. At 0530, She reported coccygeal discomfort. She had just been straight cathed for 150 cc concentrated urine. i was called and notified of recurrent variable decelerations occurring with contractions. Examined and found to be fully dilated. BP 124/73 Results Hemoglobin/Hematocrit: Hgb 12.5 g/dL (11.2-15.7) 07/03/25 17:02 Hct 36.5 % (36.0-46.0) 07/03/25 17:02 Abnormal Lab Findings: Abnormal Labs 07/03/25 17:02 WBC 11.47 H MPV 11.2 H
--- NOTE | 2025-07-04 07:12 | W.PM.OBNL1 ---
Date of service: 07/04/25 Time of Service: 07:13 Informed Consent Informed Consent: Risk,Benefits,Alternatives Discussed (stopping pushing or continuing at this time) Contractions Monitor Mode: External Contraction Frequency(min): every 3 Contraction Duration(sec): 60 Intensity: Strong Fetus A Monitor: External (US) Heart Rate Baseline: 125 Variability: Moderate (6-25 BPM) Categories: Category I FHR Rhythm: Regular Accelerations: 15 X 15 Decelerations: Variable Recurrence: Intermittent Assessment and Plan Assessment and plan (1) Encounter for induction of labor: Status: Acute Assessment and plan: Will continue to assess FHR pattern and resume pushing if indicated. Care will be assumed by Mary Carey CNM at 0800. Objective Abnormal lab results 07/03/25 Range/Units 17:02 WBC 11.47 H (4.4-10.8) 10^3/uL MPV 11.2 H (8.0-11.0) fL Temp Pulse Resp BP Pulse Ox 98 F 98 H 16 129/63 96 07/04/25 07:04 07/04/25 07:12 07/04/25 07:04 07/04/25 07:04 07/04/25 07:10 Laboratory Results WBC 11.47 10^3/uL (4.4-10.8) H 07/03/25 17:02 RBC 4.37 10^6/uL (3.93-5.22) 07/03/25 17:02 Hgb 12.5 g/dL (11.2-15.7) 07/03/25 17:02 Hct 36.5 % (36.0-46.0) 07/03/25 17:02 MCV 84 fL (80-95) 07/03/25 17:02 MCH 28.6 pg (27.0-33.0) 07/03/25 17:02 MCHC 34.2 % (32.0-36.0) 07/03/25 17:02 RDW 13.3 % (11.7-14.6) 07/03/25 17:02 Plt Count 239 10^3/uL (130-400) 07/03/25 17:02 MPV 11.2 fL (8.0-11.0) H 07/03/25 17:02 ABO/Rh O Positive 07/03/25 17:02 Antibody Screen NEGATIVE 07/03/25 17:02 Vital Signs Reviewed: Yes Subjective Patient Reports: No new Complaints Interval history since last seen: Dayana pushed well on her back and on her hands and knees with slow descent. She has good muscle control of her body with epidural. Recurrent variables continue and she was encouraged to stop pushing at 0700. She was moved to left side lying and heart rate improved with fewer variable decelerations. BP 129/63. Dr Paris is present at the Center Results Hemoglobin/Hematocrit: Hgb 12.5 g/dL (11.2-15.7) 07/03/25 17:02 Hct 36.5 % (36.0-46.0) 07/03/25 17:02 Abnormal Lab Findings: Abnormal Labs 07/03/25 17:02 WBC 11.47 H MPV 11.2 H
--- NOTE | 2025-07-04 07:53 | OBCE_ITS ---
Date of service: 07/04/25 Time of Service: 07:54 Assessment and Plan Assessment and plan (1) Encounter for induction of labor: Status: Acute Assessment and plan: Labor induction, now in the second stage, and has been pushing for approximately just shy of 2 hours with good maternal effort, and appropriate descent. Estimated weight is approximately 9 pounds. Baby is in the OA position. Will continue maternal expulsive efforts. Intervention with operative vaginal with vacuum versus , if all baby is not tolerating labor appropriately. Mom, dad, and 2 grandmothers present for these conversations. All questions were answered. History of Present Illness History of Present Illness Chief Complaint: Labor, second stage. Narrative: Patient 25-year-old female who is here in the center for labor induction. She is currently 40 weeks and 5 days. She was admitted last night for cervical ripening and received 2 doses of oral misoprostol. She went into labor and progressed rapidly from 2 cm to 8 cm and received epidural for pain control. This morning approximately 6 AM, she was found to be completely dilated. She began maternal pushing efforts at 610. I was notified of a category 2 strip with some intermittent variable decelerations. Upon presentation, she has epidural for pain control. heart tones are baseline of 150s with early decelerations with pushing and variable decelerations intermittently. The OR crew was notified to hold in OR room, anesthesia is available if needed and pediatrics was also notified. She did have spontaneous rupture of membranes now for less than 12 hours with lightly meconium stained fluid. Review of Systems All systems reviewed & are unremarkable except as noted in HPI and below Eyes Eyes: Reports as per HPI and Reports system reviewed and no additional complaints, except as documented ENT Ears, Nose, Mouth, and Throat: Reports system reviewed and no additional complaints, except as documented and Reports as per HPI Cardiovascular Cardiovascular: Reports system reviewed and no additional complaints, except as documented, Denies chest pain and Denies irregular heart rhythm Respiratory Respiratory: Reports system reviewed and no additional complaints, except as documented, Denies chest congestion and Denies cough Gastrointestinal Gastrointestinal: Reports system reviewed and no additional complaints, except as documented Genitourinary Genitourinary: Reports system reviewed and no additional complaints, except as documented Neurologic Neurologic: Reports system reviewed and no additional complaints, except as documented PFSH All Active Problems (Updated 07/03/25 @ 17:04 by Julisa Mcknight CNM) Gestational hypertension (Acute) Encounter for induction of labor (Acute) Left hip pain (Acute) Anemia affecting (Acute) Flat nipple (Acute) History of frequent urinary tract infections (Acute) (Acute) Palpitations (Acute) Medical History (Updated 07/03/25 @ 17:04 by Julisa Mcknight CNM) Pelvic pain Dysuria during Chronic constipation History of Lyme disease Family history of breast cancer in mother Social History Smoking/Tobacco Use Status: Never Smoking risk assessment performed?: Yes Alcohol Intake: never Drug use: Never Substance use type: does not use Details: n/a Housing: house Do you feel safe at home: Yes Do you feel safe in your relationship?: Yes History History 2 1 Para 0 Hx # Term Pregnancies 0 Multiple births 0 Hx # Pregnancies 0 Ectopic pregnancies 0 AB induced 0 Hx Number of Living Children 0 AB spontaneous 0 Results Last Vital Signs Temp 98 F 07/04/25 07:04 Pulse 99 H 07/04/25 07:32 Resp 16 07/04/25 07:04 BP 129/63 07/04/25 07:04 Pulse Ox 96 07/04/25 07:30 Labs 07/03/25 17:02 Labs: Laboratory Results - last 24 hr 07/03/25 17:02 WBC 11.47 H RBC 4.37 Hgb 12.5 Hct 36.5 MCV 84 MCH 28.6 MCHC 34.2 RDW 13.3 Plt Count 239 MPV 11.2 H ABO/Rh O Positive Antibody Screen NEGATIVE
[2025-07-04] MEDS: Lactated Ringers 1,000 ML 150 ML IV (08:10)
[2025-07-04] MEDS: Oxytocin/Normal Saline 30 UNIT/500 ML BAG 95 UNITS IV (08:36)
--- NOTE | 2025-07-04 09:10 | OBVDS_ITS ---
Date of service: 07/04/25 Time of Service: 09:10 OB Labor/ Delivery Information Baby A Delivery Delivery Method: Spontaneaous Presentation: Cephalic Cephalic Position: Vertex Vertex Position: Right Occipital Anterior Breech Position: N/A Cord Description-Baby A: 3 Vessels and Clamped/Cut Amniotic Fluid: Meconium Quantitative Blood Loss: 100 ml Delivery Outcome: Liveborn Transferred: Remains with Mother Note: Received on-shift report from off-shift spa director/finance LUCY Mcknight. Category 2 tracing for past 3 hours, excellent maternal expulsive efforts, Dr. Paris on unit, has reviewed tracing and evaluated pt for route of delivery, current plan of care is vaginal delivery without operative assist as descent is slow but steady an dFHT variability remains minimal to moderate, Peds to attend delivery. Pt responding well to coaching, epidural effective though pt able to feel rectal and vaginal pressure as well as contractions. Decels continued recurrently with slow return to >100 bpm then baseline between contractions, minimal variability noted. over attempted intact perineum, shoulders easily delivered and vigorous male infant placed in mother's arms after brief bulb sx on field. Cord clamped then cut by FOB at 3 minutes age, Peds evaluated infant in warmer for a minute or two then placed S2S on mother's chest, arterial cord gas collected, then cord blood collected, IV pitocin bolus running. Richie placenta delivered intact with 3VC. Scant lochia, fundus firm below umbilicus, superficial introital abrasion noted, edges approximated with 1 stitch of 3.0 Vicryl. Strong family bonding observed, apgars 9/9, weight 3750 gms. Providers Nurse Alteration Workroom Supervisor: Mariah Carey Nurse: Carole Baker Nurse: Denice Rome Labor/Delivery Information Number of Babies in Womb: 1 Steroids Given: None Reason Steroids Not Administered: N/A Group Beta Strep: N/A Antibiotics Administered: No Rubella Status: Immune Blood Type: O+ Varicella Immunity: Immune Medication in Delivery: pitocin IV bolus Shoulder Dystocia: No Stages of Labor Onset of Labor Date: 07/04/25 Onset of Labor Time: 00:30 Complete Dilatation Date: 07/04/25 Complete Dilatation Time: 06:10 Labor - Stage 1 Duration: 5 hours and 40 minutes ROM Baby A: 07/04/25 ROM Baby A: 23:55 Infant Delivery Date-Baby A: 07/04/25 Infant Delivery Time-Baby A: 08:35 Labor Stage 2 Duration: 2 hours and 25 minutes Placenta Delivery Date-Baby A: 07/04/25 Total Length of Labor-Baby A: 8 hours and 5 minutes Baby A Infant Gender: Male Gestational Status: Term (39-41.6 wks) Gestational Age in Weeks/Days: 40 Weeks and 5 Days weight: 8 lb 4.277 oz Weight Comment: 3750 gms Score-1 Minute Interval(Baby A) Heart Rate-1 minute: 100 BPM or Greater Respiratory Effort- 1 minute: Spontaneous/Strong Cry Muscle Tone-1 minute: Active Movement Reflex Response-1 minute: Prompt Response Color-1 minute: Bluish Hands or Feet Score-5 Minute Interval(Baby A) Heart Rate- 5 minute: 100 BPM or Greater Respiratory Effort-5 minute: Spontaneous/Strong Cry Muscle Tone-5 minute: Active Movement Reflex Response-5 minute: Prompt Response Color-5 minute: Bluish Hands or Feet
[2025-07-04] MEDS: Acetaminophen 325 MG TAB 650 MG PO ×3 (10:00→19:59)
[2025-07-04] MEDS: Docusate Sodium 100 MG CAP PO (10:00)
[2025-07-04] MEDS: Hamamelis Leaf/Glycerin 100 EACH BOX PR (10:11)
[2025-07-04] MEDS: Dibucaine 1% 28 GM TUBE TP (10:11)
[2025-07-04] MEDS: Ibuprofen 600 MG TAB PO ×2 (14:12→19:59)
[2025-07-05 01:22] VITALS: BP 123/81; PULSE 73; RESP 18; TEMP 36.6
[2025-07-05] MEDS: Ibuprofen 600 MG TAB PO ×4 (01:40→19:52)
[2025-07-05] MEDS: Acetaminophen 325 MG TAB 650 MG PO ×4 (01:41→18:19)
[2025-07-05 08:00] VITALS: BP 128/77; PULSE 77; RESP 16; TEMP 36.6; O2SAT 98
--- NOTE | 2025-07-05 08:07 | W.PM.OBPNV1 ---
Date of service: 07/05/25 Time of Service: 08:07 Assessment and Plan Assessment and plan (1) Term delivered: Status: Acute Assessment and plan: A: PPD#1, nml recovery, normotensive since delivery going well Satisfied with experience P: Planning for discharge tomorrow Undecided about contraception LC consult today; routine PP Care Subjective Subjective Patient comments: No complaints, Pain well controlled, Tolerating diet and Flatus present Patient's Mood: happy [place] baby status: Doing well, Nursing well, Rooming in and Strong Bonding Observed [place] feeding status: Exclusively breast feeding Exam Physical Exam Vital signs: Temp Pulse Resp BP Pulse Ox 97.8 F 73 18 123/81 97 07/05/25 01:22 07/05/25 01:22 07/05/25 01:07/05/25 01:07/04/25 14:00 Vital Signs Reviewed: Yes Constitutional Constitutional: no acute distress, average body habitus and cooperative HEENT Exam HEENT Exam: Normal Neck Exam Neck Exam: Normal Breast Exam Bilateral: Breast Exam: Normal and Soft Nipple Exam: Normal and Uninjured Respiratory Exam Respiratory Exam: Normal Cardiovascular Exam Cardiovascular Exam: Normal Abdominal Exam Abdomen: Other (soft, nontender) Fundal Exam Fundus: Below Umbilicus and Firm Exam Perineum: Intact Extremities Exam Extremity Exam: Normal, Full ROM and Warm to Touch Back/Spine/Pelvis Exam Back Exam: Normal Skin Exam Skin Exam: Normal Neurological Exam Neurological Exam: Normal Psychiatric Exam Psychiatric Exam: Normal
--- NOTE | 2025-07-05 14:40 | ANES.POST_ITS ---
Postoperative Evaluation Date, Time and Location Date Performed: 07/05/25 Time Performed: 14:40 Patient Location: Obstetrics Vital Signs Most Recent Imported Vital Signs: Most Recent Vital Signs Temp Pulse Resp BP Pulse Ox 36.6 C 77 16 128/77 98 07/05/25 08:00 07/05/25 08:00 07/05/25 08:00 07/05/25 08:00 07/05/25 08:00 Pain Score Most Recent Pain Score: Most Recent Pain Score Pain Level 3 07/05/25 01:41 Assessment Mental Status: Awake (Alert & Oriented to Patient Baseline) Airway and Respiratory Function: Patent airway with normal (patient baseline) respiratory exam Cardiovascular Function: Hemodynamically Stable Hydration Status: Adequately Hydrated Nausea & Vomiting: No Nausea or Vomiting Pain: Pt. Denies Any Pain Peripheral Nerve Block: Patient did not receive a nerve block Postoperative Comments:: Epidural cath removed by staffing consultant. Tip intact. Pt happy with pain coverage. Jose Martinez OBSTETRICS TECH
[2025-07-05 19:15] VITALS: BP 125/79; PULSE 64; RESP 16; TEMP 36.6; O2SAT 98
[2025-07-05] MEDS: Docusate Sodium 100 MG CAP PO (19:52)
[2025-07-06] MEDS: Acetaminophen 325 MG TAB 650 MG PO ×3 (00:41→12:36)
[2025-07-06] MEDS: Ibuprofen 600 MG TAB PO ×2 (06:33→12:37)
[2025-07-06 09:37] VITALS: BP 116/77; PULSE 78; RESP 16; TEMP 36.8
--- NOTE | 2025-07-06 11:08 | DSE_ITS ---
Date of service: 07/06/25 Time of Service: 11:08 DS: Diagnosis Discharge Diagnosis (1) Term delivered: Status: Acute Asessment and Plan: Caring for baby independently. Pain is managed well with oral analgesics. Voiding without difficulty. well. A - stable mother and baby , Post day 2 P - Discharge to home. Routine post instructions. [facility] up at [facility]. Discharge Plan Disposition Patient Disposition: Home Condition: Good Discharge Details Reason For Visit: Induction of labor Admit Date/Time: 07/03/25 16:32 Admit Provider: Julisa Mcknight Attending Provider: Julisa Mcknight Primary Care Provider: Corrina Ramirez Hospital Course Hospital Course: Admitted for cervical ripening d/t gHTN, mild & intermittent, the following morning under epidural anesthesia, nml recovery, well. Home Meds and New Rx's Prescriptions: No Action Classic 28 mg iron- 800 mcg tablet 1 tab PO DAILY erythromycin with ethanol 2 % solution 1 applic topical BID Qty: 60 1RF docusate sodium 100 mg capsule 100 mg PO ONCE Patient Comments: TAKE 1 CAPSULE BY MOUTH TWICE DAILY Discharge Instructions Additional Instructions: Please keep your 2 and 6 week appointments with your knotting machine operator, call for any and all concerns. Stand Alone Forms: BC Instructions, BC Post Vaginal Deliver Activity:: Activity as Tolerated Equipment/Supplies:: No Equipment Needed Diet:: Normal Diet Discharge Orders Discharge Orders: Discharge Order (Routine); Ordered 07/06/25 Ordered By: Julisa Mcknight OB:DS Summary Summary Vaginal Delivery Method: Spontaneaous Episiotomy Description: None Laceration Description: Perineal Contraception Discussed Contraception Discussed: Yes Contraceptive Plan: Undecided, Gender-Baby A: Male weight: 8 lb 4.277 oz Status at Discharge Functional status at discharge: independent ambulation Overall status at discharge: patient is back to baseline Mental Status: mental status grossly normal Speech and Movement: speech and movement normal Mood: congruent mood Affect: normal affect Exam Physical Exam Vital signs: Temp Pulse Resp BP Pulse Ox 98.2 F 78 16 116/77 98 07/06/25 09:37 07/06/25 09:37 07/06/25 09:37 07/06/25 09:37 07/05/25 19:15 Vital Signs Reviewed: Yes Constitutional Constitutional: no acute distress Respiratory Exam Respiratory Exam: Normal Cardiovascular Exam Cardiovascular Exam: Normal Fundal Exam Fundus: Below Umbilicus and Firm Rectal Exam Rectal Exam: Normal Extremities Exam Extremity Exam: Normal Skin Exam Skin Exam: Normal Psychiatric Exam Psychiatric Exam: Normal PFSH All Active Problems (Updated 07/05/25 @ 08:08 by Mariah Carey) Term delivered (Acute) Left hip pain (Acute) Flat nipple (Acute) History of frequent urinary tract infections (Acute) Palpitations (Acute) Medical History (Updated 07/05/25 @ 08:08 by Mariah Carey) Anemia affecting Encounter for induction of labor Gestational hypertension Pelvic pain Dysuria during Chronic constipation History of Lyme disease Family history of breast cancer in mother Social History Smoking/Tobacco Use Status: Never Smoking risk assessment performed?: Yes Alcohol Intake: never Drug use: Never Substance use type: does not use Details: n/a Housing: house Do you feel safe at home: Yes Do you feel safe in your relationship?: Yes History History 1 Para 0 Hx # Term Pregnancies 0 Multiple births 0 Hx # Pregnancies 0 Ectopic pregnancies 0 AB induced 0 Hx Number of Living Children 0 AB spontaneous 0 DS: Data Vitals/I&O Vitals and I&O: Vital Signs Temperature 98.2 F 07/06/25 09:37 Temperature Source Oral 07/06/25 09:37 Pulse 78 07/06/25 09:37 Pulse Rhythm Regular 07/05/25 19:15 Respiratory Rate 16 07/06/25 09:37 Respiratory Depth Normal 07/05/25 19:15 Blood Pressure 116/77 07/06/25 09:37 Blood Pressure Mean 90 07/06/25 09:37 Pulse Oximetry 98 07/05/25 19:15 Oxygen Delivery Method Room Air 07/03/25 16:52 Oxygen Flow Rate 0 07/03/25 16:52 Pain Level 4 07/05/25 19:52 Intake & Output 07/05/25 07/05/25 07/06/25 11:59 23:59 11:59 Other: Urine Color Pale Yellow Urine Appearance Clear Urine Odor None
[2025-07-06] MEDS: Hamamelis Leaf/Glycerin 100 EACH BOX PR (12:37)
[2025-07-06] MEDS: Dibucaine 1% 28 GM TUBE TP (12:37)
== END 2025-07-06 13:05 | disposition home or self-care (01) | DRG 807 ==
PROVIDERS: Admitting Provider Advanced Practice Midwife; PCP Physician Assistant; Visit Provider Advanced Practice Midwife
DX: O13.4 Gestational [pregnancy-induced] hypertension without significant proteinuria, complicating childbirth (principal); Z37.0 Single live birth; Z3A.40 40 weeks gestation of pregnancy; O70.0 First degree perineal laceration during delivery; O99.62 Diseases of the digestive system complicating childbirth; O99.02 Anemia complicating childbirth; D64.9 Anemia, unspecified; K59.04 Chronic idiopathic constipation
CPT/HCPCS: 85027; 86850; 86900; 86901; 59200; J3490

== ENCOUNTER 2025-08-16 12:47 | Outpatient (REF) | payer OTHER, SELFPAY ==
--- NOTE | 2025-08-16 11:00 | PAPFT_PTH ---
PATIENT: Dayana Rushing LOC: [facility] U#:[id number] AGE/SX: 25/F ROOM: RE08/16/[address]: Mariah Carey CNM : 2000 BED: DIS: 08/16/2025 SPEC #: [id number] RECD: 08/16/25 12:49 STATUS: SHIRA RESidra #: [id number] MARIE: 08/16/25 11:[address]: Mariah Carey DEPT: [facility] Cytology RECD BY: Danay Kim ENTERED: 08/16/25 12:50 SP TYPE: PAPFT OTHR DR: Corrina Ramirez Tissues: 1 - CX/ENDOCX FOR PAP SMEARS Procedures: PAP THIN PREP/[facility] Screening Comments: [id number]
== END 2025-08-16 12:48 | disposition home or self-care (01) ==
LOC: LBN 12:47
PROVIDERS: PCP Physician Assistant; Visit Provider Advanced Practice Midwife
DX: Z12.4 Encounter for screening for malignant neoplasm of cervix (principal)
CPT/HCPCS: 88142